=== PATIENT | female | born 1950 | race Caucasian/White ===

== ENCOUNTER → 2017-08-04 | Outpatient (CLI) | payer MEDICARE ==
[~2017-08-04] MED LIST: OMNIPAQUE 350 MG/ML, 100ML BOTTLE ONE
== END | disposition home or self-care (01) ==
LOC: CFH 08:54
PROVIDERS: ATTEND Internal Medicine
DX: K76.0 Fatty (change of) liver, not elsewhere classified (principal); Z90.49 Acquired absence of other specified parts of digestive tract; Z90.710 Acquired absence of both cervix and uterus
CPT/HCPCS: 74177; 82565; Q9967

== ENCOUNTER 2020-02-12 16:52 | Outpatient (CLI) | payer MEDICARE | END 2020-02-12 23:59 | disposition home or self-care (01) | LOC: LAB 16:52 | PROVIDERS: ATTEND Nurse Practitioner Primary Care | DX: Z02.9 Encounter for administrative examinations, unspecified (principal) ==